=== PATIENT | male | born 1940 | race Hispanic/Latino ===

== ENCOUNTER 2022-08-21 06:03 | Emergency (ER) | payer OTHER ==
[2022-08-21 06:39] LABS: BASOPHILS % (AUTO) 0.5 % (0.0-5.0); EOSINOPHILS % (AUTO) 3.7 % (0.0-8.0); HEMATOCRIT 35.1 % (42-54); LYMPHOCYTES % (AUTO) 33.2 % (21.0-51.0); MEAN CORPUSCULAR HEMOGLOBIN 29.2 pg (27.0-33.0); MEAN CORPUSCULAR HGB CONC 32.5 g/dL (32.0-36.0); MONOCYTES % (AUTO) 6.9 % (3.0-13.0); NEUTROPHILS % (AUTO) 55.4 % (40.0-77.0); PLATELET COUNT (AUTO) 218 K/uL (130-400); WHITE BLOOD COUNT (AUTO) 9.4 K/uL (4.8-10.8)
[2022-08-21 06:43] LABS: APPEARANCE,URINE CLEAR (CLEAR); BILIRUBIN,URINE NEGATIVE (NEGATIVE); GLUCOSE, URINE (UA) NEGATIVE (NEGATIVE); KETONES,URINE NEGATIVE (NEGATIVE); LEUKOCYTE ESTERASE ,URINE 75 Leu/uL (NEGATIVE); NITRATE,URINE NEGATIVE (NEGATIVE); OCCULT BLOOD,URINE NEGATIVE (NEGATIVE); PH,URINE 7.5 (5.0-8.0); PROTEIN,URINE NEGATIVE (NEGATIVE); UROBILINOGEN,URINE 0.2 mg/dL (0.2-1.0)
[2022-08-21 06:46] LABS: COLOR,URINE LIGHT-YELLOW (YELLOW)
[2022-08-21 06:52] VITALS: BP 156/79
[2022-08-21 06:53] LABS: BACTERIA,URINE RARE /HPF (None Seen); RBC,URINE 0-1 /HPF (0-1)
[2022-08-21 06:54] LABS: ALBUMIN 3.4 g/dL (3.5-5.0); CREATININE 0.7 mg/dL (0.5-1.5); POTASSIUM 3.9 mmol/L (3.5-5.1); TOTAL PROTEIN, SERUM 7.1 g/dL (6.0-8.3)
[2022-08-21] MEDS ORDERED: LISI10TA24 PO ×2 (06:54→07:41)
== END 2022-08-21 07:38 | disposition home or self-care (01) ==
LOC: EDH 06:03
DX: I10 Essential (primary) hypertension (principal); Z79.899 Other long term (current) drug therapy
CPT/HCPCS: 36415; 71045; 80053; 81001; 84484; 85025; 87077; 87088; 87186; 93005